=== PATIENT | male | born 1985 | race African-American/Black ===

== ENCOUNTER 2018-02-10 06:11 | Day surgery (SDC) | payer OTHER ==
[2018-02-10] VITALS (14 sets, daily range): BP systolic 127–188; BP diastolic 82–114; PULSE 59–105; TEMP 97.8
[~2018-02-10] VITALS: Ht 175.3 cm; Wt 113.7 kg
[2018-02-10 06:42] LABS: HEMATOCRIT 41.1 % (42.0-52.0); MEAN CELL VOLUME 83 fl (80.0-100.0); MEAN CORPUSCULAR HEMOGLOBIN 28 pg (27.0-31.0); MEAN CORPUSCULAR HGB CONC 34 g/dl (33.0-37.0); MEAN PLATELET VOLUME 9.4 fl (7.4-10.4); PLATELET COUNT 256 K/mm3 (130-400); RED BLOOD COUNT 4.93 M/mm3 (4.20-5.60); REDCELL DISTRIBUTION WIDTH-CV 14.6 % (11.5-14.5)
[2018-02-10 06:48] LABS: INR 0.9 (0.8-3.0); PROTHROMBIN TIME 10.2 SECONDS (9.7-12.8)
[2018-02-10 06:59] LABS: CALCIUM 8.8 mg/dL (8.4-10.2); CREATININE, serum 0.9 mg/dL (0.66-1.25); POTASSIUM 3.8 mmol/L (3.4-5.0)
[2018-02-10] MEDS ORDERED: TIAZAC120 MG PO (07:17)
== END 2018-02-10 17:56 | disposition home or self-care (01) ==
LOC: COL.CAR 06:11
PROVIDERS: Internal Medicine Cardiovascular Disease
DX: R07.9 Chest pain, unspecified (principal); R94.39 Abnormal result of other cardiovascular function study; I10 Essential (primary) hypertension; F17.210 Nicotine dependence, cigarettes, uncomplicated; Z82.49 Family history of ischemic heart disease and other diseases of the circulatory system
CPT/HCPCS: J1200; J1644; J2250; J3010; Q9967